=== PATIENT | male | born 1970 | race Hispanic/Latino ===

== ENCOUNTER → 2020-10-27 | Outpatient (CLI) | payer OTHER, MEDICARE ==
[2020-10-26 13:50] LABS: CREATININE 0.9 mg/dL (0.5-1.5)
[~2020-10-27] MED LIST: GADOTERATE MEGLUMINE 10 MMOL/20 ML VIAL IV ONE
== END | disposition home or self-care (01) ==
LOC: RAH 10:38
PROVIDERS: ATTEND Family Medicine
DX: M75.112 Incomplete rotator cuff tear or rupture of left shoulder, not specified as traumatic (principal)
CPT/HCPCS: 36415; 73223; 82565; 84520; A9575

== ENCOUNTER 2022-07-30 10:36 | Emergency (ER) | payer OTHER, MEDICARE ==
[~2022-07-30] VITALS: Ht 167.6 cm; Wt 95.3 kg
[2022-07-30 10:38] VITALS: BP 143/81
[2022-07-30] MEDS ORDERED: CYCLOBENZAPRINE HCL 10 MG TABLET PO ONE (11:00)
[2022-07-30] MEDS ORDERED: CYCL5TAB PO (11:39)
== END 2022-07-30 11:45 | disposition home or self-care (01) ==
LOC: EDH 10:36
DX: M62.830 Muscle spasm of back (principal); E11.9 Type 2 diabetes mellitus without complications; I10 Essential (primary) hypertension